=== PATIENT | male | born 1960 | race Caucasian/White ===

== ENCOUNTER 2024-01-06 19:10 | Emergency (ER) | payer SELFPAY ==
--- NOTE | 2024-01-06 19:19 | ED.GENADULT ---
HPI - General Adult General Chief complaint: Wound/Laceration Stated complaint: wound laceration rt pinky Time Seen by Provider: 01/06/24 19:19 Source: patient Mode of arrival: ambulatory Limitations: no limitations History of Present Illness HPI narrative: 63-year-old male patient presents to the [facility] with complaints of a laceration to the right pinky. patient states he was sawing with an electric saw and accidentally cut the pinky finger. Patient unaware when his last tetanus shot was. Related Data Allergies Allergy/AdvReac Type Severity Reaction Status Date / Time No Known Allergies Allergy Verified 01/06/24 19:19 Review of Systems Review of Systems: CONSTITUTIONAL: Denies fever, chills, or sweats. EYES: Denies visual changes, redness, or discharge. ENT: Denies rhinorrhea, congestion, sore throat, or otalgia. CARDIOVASCULAR: Denies chest pain, palpitations, or edema. RESPIRATORY: Denies cough or dyspnea. GASTROINTESTINAL: Denies abdominal pain, nausea, vomiting, or diarrhea. GENITOURINARY: Denies dysuria or hematuria. SKIN: Denies rash or itching. Positive laceration right pinky finger MUSCULOSKELETAL: Denies back pain, joint pain, or myalgia. NEUROLOGIC: Denies headache, numbness, or weakness. PSYCHIATRIC: Denies anxiety or depression. [facility] Family History Family History Father Heart disease Social History Social History Smoking status: Never smoker Alcohol intake: never Substance use: never Substance use type: does not use Comments At the time of my signature I agree with nursing past medical history, surgical, social, and family history. There is no relevant family history pertinent to the presenting complaint. Exam Narrative: GENERAL: Well-appearing, well-nourished, and in no acute distress. HEAD: Normocephalic, atraumatic. EYES: PERRLA and EOMI. ENT: Nares clear, no rhinorrhea or epistaxis. Mucous membranes moist. NECK: Supple. No lymphadenopathy CHEST: Clear to auscultation. No respiratory distress. HEART: Regular rate and rhythm. No murmur heard. Normal peripheral pulses. ABDOMEN: Soft, nontender, nondistended, normal active bowel sounds. EXTREMITIES: Normal range of motion. No edema. SKIN: Warm, dry, no rash. patient has laceration of the right pinky finger that is a v-shaped approximately 2 x 3.5 cm. There is some avulsions to certain places of the laceration and not very well approximated. Patient has good range of motion to the D IP joint and good sensation to the distal tip of the pinky finger. NEURO: No focal deficits. Alert and oriented x3. Course Course Level of Care: Express Care Visit Vital Signs Vital signs: Vital Signs Temperature 36.8 C 01/06/24 19:20 Pulse Rate 109 H 01/06/24 19:20 Respiratory Rate 16 01/06/24 19:20 Blood Pressure 197/103 H 01/06/24 19:20 Pulse Oximetry 100 01/06/24 19:20 Oxygen Delivery Room Air 01/06/24 19:20 Temperature 36.8 C 01/06/24 19:20 Pulse Rate 109 H 01/06/24 19:20 Respiratory Rate 16 01/06/24 19:20 Blood Pressure 197/103 H 01/06/24 19:20 Pulse Oximetry 100 01/06/24 19:20 Oxygen Delivery Room Air 01/06/24 19:20 Vital signs reviewed The patient has been informed that they may have pre-hypertension or Hypertension based on a BP reading in the department. I recommend that the patient call the primary care provider listed on their discharge instructions or a physician of their choice this week to arrange follow up for further evaluation of possible pre-hypertension or Hypertension Procedures Laceration Laceration 1: Date: 01/06/24 Time: 19:20 Site: hand Side (If applicable): right Size (cm): 3.5 Description: flap and irregular Depth: simple, single layer Local Anesthetic: lidocaine 1% Amount of anesthesia used (mL):
[2024-01-06 19:20] VITALS: BP 197/103; PULSE 109; RESP 16; TEMP 36.8; O2SAT 100
[2024-01-06] MEDS: LIDOCAINE HCL 1% LOCAL INJ 2 ML AMPUL 10 ML INFILTRATE (19:34)
[2024-01-06] MEDS: TETANUS,DIPHTHERIA,AC PERTUSSIS ADULT (0.5 ML) BOOSTRIX IM (19:34)
[2024-01-06 20:15] VITALS: BP 140/90
== END 2024-01-06 20:15 | disposition home or self-care (01) ==
PROVIDERS: Emergency Provider Nurse Practitioner Family; Referring Provider Family Medicine
DX: S61.216A Laceration without foreign body of right little finger without damage to nail, initial encounter (principal); W27.0XXA Contact with workbench tool, initial encounter; Z23 Encounter for immunization
CPT/HCPCS: 12002; 90471; 90715; 99213; G0463